=== PATIENT | female | born 1955 | race Caucasian/White ===

== ENCOUNTER → 2020-12-27 11:57 | Outpatient (CLI) | payer OTHER, SELFPAY ==
--- NOTE | ~2020-12-27 | MM_ITS ---
EXAMINATION: MM screening [facility] BI w nidia HISTORY: Screening mammogram TECHNIQUE: Craniocaudal and mediolateral oblique 3-D tomosynthesis images were obtained and synthetic 2-D images were generated. CAD analysis was submitted and interpreted. COMPARISON: 10/05/2019, 07/31/2018, 03/29/2017 bilateral digital screening mammogram examinations BREAST PARENCHYMAL COMPOSITION: The breasts are almost entirely fatty. FINDINGS: There is no evidence of suspicious mass, calcification, or architectural distortion to sugg est malignancy in either breast. There has been no suspicious interval change. IMPRESSION: 1. No mammographic evidence of malignancy. 2. Recommend routine screening mammography in one year. BI-RADS Category 1: Negative Reviewed, dictated and finalized at location A. SYSTEM OPERATOR
--- NOTE | ~2020-12-27 | DEXA_ITS ---
Bone Density Report Name: Gala Larios Age: 65 Sex: Female Ethnicity: White Date of : 1955 Indication: postmenopausal; screening for osteoporosis; height loss; hysterectomy; Referring Provider: Tobias, Becca Study: Bone densitometry was performed. Exam Date: December 27, 2020 Accession number: [id number] Bone Density: Region BMD T-score Z-score Classification AP Spine (L1-L4) 0.908 -1.3 0.4 Osteopenia Femoral Neck (Left) 0.856 0.1 1.5 Normal Total Hip (Left) 0.986 0.4 1.5 Normal Femoral Neck (Right) 0.841 -0.1 1.4 Normal Total Hip (Right) 0.965 0.2 1.3 Normal Total Hip Mean 0.976 0.3 1.4 Normal World Health Organization criteria for BMD impression classify patients as: Normal (T-score at or above -1.0), Osteopenia (T-score between -1.0 and -2.5), or Osteoporosis (T-score at or below -2.5). 10-year Fracture Risk(1): Major Osteoporotic Fracture 6.4% Hip Fracture 0.2% Reported Risk Factors: [place] (), Neck BMD=0.841, BMI=31.8 (1) FRAX(R) Version 3.08. Fracture probability calculated for an untreated patient. Fracture probability may be lower if the patient has received treatment. Previous Exams: Region Exam Age BMD T-score BMD Change BMD Change Date g/cm2 vs Baseline vs Previous AP Spine(L1-L4) 12/27/2020 65 0.908 -1.3 -0.112* -0.043* 07/31/2018 63 0.952 -0.9 -0.068* -0.044* 02/13/2015 59 0.996 -0.5 -0.024* -0.020 03/30/2012 56 1.016 -0.3 -0.004 0.006 01/29/2010 54 1.010 -0.3 -0.010 0.045* 11/04/2008 53 0.965 -0.7 -0.055* -0.055* 11/03/2006 51 1.020 -0.2 Total Hip(Left) 12/27/2020 65 0.986 0.4 -0.049* -0.068* 07/31/2018 63 1.054 0.9 0.019 0.018 02/13/2015 59 1.036 0.8 0.001 -0.047* 03/30/2012 56 1.083 1.2 0.047* 0.032* 01/29/2010 54 1.051 0.9 0.015 -0.026 11/04/2008 53 1.077 1.1 0.042* 0.042* 11/03/2006 51 1.035 0.8 Total Hip(Right) 12/27/2020 65 0.965 0.2 -0.034* -0.093* 07/31/2018 63 1.059 1.0 0.059* 0.029* 02/13/2015 59 1.030 0.7 0.030* -0.017 03/30/2012 56 1.047 0.9 0.047* 0.021 01/29/2010 54 1.026 0.7 0.026 0.030* 11/04/2008 53 0.996 0.4 -0.004 -0.004 11/03/2006 51 1.000 0.5 [place]
== END ==
PROVIDERS: PCP Emergency Medicine; Visit Provider Nurse Practitioner
DX: Z12.31 Encounter for screening mammogram for malignant neoplasm of breast (principal); Z78.0 Asymptomatic menopausal state; M85.88 Other specified disorders of bone density and structure, other site
CPT/HCPCS: 77063; 77067; 77080

== ENCOUNTER → 2022-01-04 10:22 | Outpatient (CLI) | payer OTHER, SELFPAY ==
--- NOTE | ~2022-01-04 | MM_ITS ---
EXAMINATION: MM screening [facility] BI w nidia HISTORY: Screening mammogram TECHNIQUE: Craniocaudal and mediolateral oblique 3-D tomosynthesis images were obtained and synthetic 2-D images were generated. CAD analysis was submitted and interpreted. COMPARISON: 12/27/2020, 10/05/2019, 07/31/2018 BREAST PARENCHYMAL COMPOSITION: There are scattered areas of fibroglandular density. FINDINGS: There is no evidence of suspicious mass, calcification, or architectural distortion to sugg est malignancy in either breast. There has been no suspicious interval change. IMPRESSION: 1. No mammographic evidence of malignancy. 2. Recommend routine screening mammography in one year. BI-RADS Category 1: Negative Reviewed, dictated and finalized at location A. RING MACHINE OPERATOR
== END ==
PROVIDERS: PCP Physician Assistant; Visit Provider Nurse Practitioner
DX: Z12.31 Encounter for screening mammogram for malignant neoplasm of breast (principal)
CPT/HCPCS: 77063; 77067

== ENCOUNTER 2022-04-11 13:30 | Emergency (ER) | payer MEDICARE, SELFPAY ==
[2022-04-11 14:11] VITALS: BP 156/76; PULSE 63; RESP 18; TEMP 36.6; O2SAT 97
--- NOTE | 2022-04-11 14:11 | ED.SKABFB ---
HPI - Skin/Abscess/Foreign Bdy General Chief complaint: Skin/Abscess/Foreign Body Stated complaint: dog bite Time Seen by Provider: 04/11/22 14:11 Source: patient Mode of arrival: ambulatory Limitations: no limitations History of Present Illness HPI narrative: 67-year-old female presented for concern of infection to a dog bite she sustained on the left leg 2 nights ago. She states she was seeing her PCP incidentally yesterday, who prescribed Augmentin and she has taken 3 doses. Endorses increased redness, swelling, and drainage to the site today. Also endorses pain, stating it is difficult to walk. Has not taken anything for pain. The dog was vaccinated, she states it is a deaf pitbull family dog. She is up-to-date on her tetanus. Denies numbness, tingling, weakness of the lower extremity. Related Data Home Medications Medication Instructions Recorded Confirmed amitriptyline 25 mg HS 04/11/22 04/11/22 atenolol-chlorthalidone 0.5 tablet DAILY 04/11/22 04/11/22 ergocalciferol (vitamin D2) 1,250 mcg WEEKLY 04/11/22 04/11/22 levothyroxine 75 mcg QAM 04/11/22 04/11/22 Allergies Allergy/AdvReac Type Severity Reaction Status Date / Time No Known Allergies Allergy Verified 04/11/22 14:30 Review of Systems Review of Systems: CONSTITUTIONAL: Denies body aches, fever, chills, or sweats. EYES: Denies visual changes, redness, or discharge. ENT: Denies rhinorrhea, congestion, sore throat, or otalgia. CARDIOVASCULAR: Denies chest pain, palpitations, or edema. RESPIRATORY: Denies cough or dyspnea. GASTROINTESTINAL: Denies abdominal pain, nausea, vomiting, or diarrhea. GENITOURINARY: Denies dysuria or hematuria. SKIN: dog bite left lower leg MUSCULOSKELETAL: Denies back pain, joint pain, or myalgia. NEUROLOGIC: Denies headache, numbness, tingling, or weakness. PSYCH: Denies depression or anxiety. PMFSH Comments At time of signature, I have reviewed and agree with nursing past medical, surgical, social and family history unless otherwise noted. Please see nursing chart for further information. There is no relevant family history pertinent to the presenting complaint Exam Narrative: GENERAL: Well-appearing HEAD: Normocephalic, atraumatic. EYES: conjunctivae clear, and EOMI. ENT: Mucous membranes moist. Oropharynx without edema, erythema or lesions. NECK: Supple. No lymphadenopathy CHEST: Clear to auscultation. No respiratory distress. HEART: Regular rate and rhythm. SKIN: Warm, dry. Left lower anterior leg with 2 puncture sites approx 0.5cm each with small amount purulent and serous drainage; lateral aspect with puncture wound approx .5cm no drainage, and posterior leg with dried laceration approx 1cm length surrounding bruising noted, no active drainage; moderate swelling and warmth, the erythema is not circumferential, slightly decreased ROM to ankle due to pain NEURO: Alert and oriented x3. PSYCH: Normal mood and affect Course Course Emergency Course: Patient is aware of diagnosis, understands and agrees to treatment plan. Anticipatory guidance given. Patient agrees to follow-up as directed and is aware of reasons to seek care at the emergency department. Portions of this record may have been created with voice recognition software Level of Care: Express Care Visit Vital Signs Vital signs: Vital Signs Temperature 97.8 F 04/11/22 14:11 Pulse Rate 63 04/11/22 14:11 Respiratory Rate 18 04/11/22 14:11 Blood Pressure 156/76 H 04/11/22 14:11 Pulse Oximetry 97 04/11/22 14:11 Temperature 97.8 F 04/11/22 14:11 Pulse Rate 63 04/11/22 14:11 Respiratory Rate 18 04/11/22 14:11 Blood Pressure 156/76 H 04/11/22 14:11 Pulse Oximetry 97 04/11/22 14:11 Reviewed MDM - Skin/Abscess/Foreign Bdy MDM Narrative Medical decision making narrative: wound culture sent. She is advised to continue previous abx and closely monitor the sx, continue to elevate and plantar/dorsiflex to increase circulatio
== END 2022-04-11 14:32 | disposition home or self-care (01) ==
PROVIDERS: Emergency Provider Nurse Practitioner Family; PCP Physician Assistant
DX: L03.116 Cellulitis of left lower limb (principal); S81.832A Puncture wound without foreign body, left lower leg, initial encounter; W54.0XXA Bitten by dog, initial encounter; E03.9 Hypothyroidism, unspecified
CPT/HCPCS: 87070; 87077; 87185; 87205; 99212; G0463

== ENCOUNTER 2022-08-01 01:00 | Outpatient (NON) | payer MEDICARE, SELFPAY | END 2022-08-01 01:01 | disposition home or self-care (01) | LOC: ANHLAB 08-02 07:50 | PROVIDERS: PCP Physician Assistant; Visit Provider Internal Medicine Gastroenterology | DX: R19.5 Other fecal abnormalities (principal); D12.8 Benign neoplasm of rectum; K62.1 Rectal polyp | CPT/HCPCS: 88305 ==

== ENCOUNTER 2022-08-01 11:58 | Day surgery (SDC) | payer MEDICARE, SELFPAY ==
[2022-06-13 07:54] VITALS: BMI 31.7
[2022-07-17 10:00] VITALS: BMI 31.2
[2022-08-01 12:22] VITALS: BP 148/77; PULSE 55; RESP 16; TEMP 36.9; O2SAT 99
[2022-08-01 12:31] VITALS: BMI 31.2
[2022-08-01] MEDS: LACTATED RINGERS 1,000 ML 150 ML IV CONT (12:32)
--- NOTE | 2022-08-01 12:46 | WPDANESEPPF ---
Anes - Initial Pre Proc Eval Procedure: Operation Date: 08/01/22 13:30 Proposed Procedures p Diagnostic Colonoscopy - Ismael Stewart MD Date/Time: 08/01/22 12:46 Surgeon: Ismael Stewart MD Pre Op Diagnosis: Positive Cologard Patient Data Age: 67 Gender: F Height: 1.55 m Weight: 75 kg Last Vital Signs Temp 36.9 C 08/01/22 12:22 Pulse 55 L 08/01/22 12:22 Resp 16 08/01/22 12:22 BP 148/77 H 08/01/22 12:22 Pulse Ox 99 08/01/22 12:22 O2 Del Method Room Air 08/01/22 12:22 Allergies Allergy/AdvReac Type Severity Reaction Status Date / Time No Known Allergies Allergy Verified 07/17/22 09:55 Home Medications Medication Instructions Recorded Confirmed Type amitriptyline 25 mg tablet 25 mg HS 04/11/22 07/17/22 History atenolol 50 mg-chlorthalidone 25 0.5 tablet DAILY 04/11/22 07/17/22 History mg tablet ergocalciferol (vitamin D2) 1,250 1,250 mcg WEEKLY 04/11/22 07/17/22 History mcg (50,000 unit) capsule levothyroxine 75 mcg tablet 75 mcg QAM 04/11/22 07/17/22 History peg 3350-electrolytes 236 240 ml PO Q10M #4,000 mL 06/13/22 Rx gram-22.74 gram-6.74 gram-5.86 gram solution (Golytely) Patient hx anesthesia problems: none Family hx anesthesia problems: none Results Review: All pre-operative results and documents have been reviewed as part of the pre-operative evaluation. [facility] Past Medical History Medical History (Updated 08/01/22 @ 12:46 by Yash Hurt MD) HTN (hypertension) Hypothyroidism Obesity Surgical History Surgical History (Updated 08/01/22 @ 12:47 by Yash Hurt MD) H/O colonoscopy H/O: hysterectomy History of section Social History Social History Smoking status: Never smoker Alcohol intake: current Drinks per week: 2 Substance use type: does not use Living arrangements: with family Spiritual care concerns: No Anes - Eval Final PreProcedure Day of Procedure 08/01/22 12:46 Patient weight: obese Heart: regular rate and rhythm Lungs: clear to auscultation Airway: Mallampati scale class II Neurological: alert and oriented Last oral intake: >/= 8 hours ASA classification: II Emergent: no Anesthetic plan: proceed Anesthesia type and monitoring: general GIVS and standard monitoring Results Review: All pre-operative results and documents have been reviewed as part of the pre-operative evaluation. Informed Consent: The patient's anesthetic plan and its attendant risks and benefits were discussed with the patient/family/POA. Questions were solicited and answers provided to the satisfaction of the patient/family/POA.
--- NOTE | 2022-08-01 13:12 | PM.IMHP ---
H&P: HPI History of Present Illness Date/Time: 08/01/22 13:12 Chief Complaint: Positive Cologuard test PMFSH Past Medical History Medical History (Updated 08/01/22 @ 12:46 by Yash Hurt MD) HTN (hypertension) Hypothyroidism Obesity Surgical History Surgical History (Updated 08/01/22 @ 12:47 by Yash Hurt MD) H/O colonoscopy H/O: hysterectomy History of section Social History Social History Smoking status: Never smoker Alcohol intake: current Drinks per week: 2 Substance use type: does not use Living arrangements: with family Spiritual care concerns: No Meds Home Medications and Allergies Home Medications Medication Instructions Recorded Confirmed Type amitriptyline 25 mg tablet 25 mg HS 04/11/22 08/01/22 History atenolol 50 mg-chlorthalidone 25 0.5 tablet DAILY 04/11/22 08/01/22 History mg tablet ergocalciferol (vitamin D2) 1,250 1,250 mcg WEEKLY 04/11/22 08/01/22 History mcg (50,000 unit) capsule levothyroxine 75 mcg tablet 75 mcg QAM 04/11/22 08/01/22 History peg 3350-electrolytes 236 240 ml PO Q10M #4,000 mL 06/13/22 Rx gram-22.74 gram-6.74 gram-5.86 gram solution (Golytely) Allergies Allergy/AdvReac Type Severity Reaction Status Date / Time No Known Allergies Allergy Verified 07/17/22 09:55 Vital Signs Vital Signs - 24 hr 08/01/22 12:22 Temperature 98.5 F Pulse Rate 55 L Respiratory Rate 16 Blood Pressure 148/77 H Pulse Oximetry 99 Oxygen Delivery Room Air
[2022-08-01 13:48] VITALS: BP 103/41; PULSE 55; RESP 16; O2SAT 100
[2022-08-01 13:58] VITALS: BP 85/43; PULSE 49; RESP 16; O2SAT 98
--- NOTE | 2022-08-01 14:02 | WPDANESPN ---
Anes - Prog Note Post-Op Date/Time: 08/01/22 14:02 Cardiovascular status: normal Respiratory status: normal Airway patency: baseline Mental status: baseline Post-Op hydration status: normal Vital Signs: Last Vital Signs Temp 36.9 C 08/01/22 12:22 Pulse 55 L 08/01/22 13:48 Resp 16 08/01/22 13:48 BP 103/41 L 08/01/22 13:48 Pulse Ox 100 08/01/22 13:48 O2 Del Method Room Air 08/01/22 13:48 Pain Score (VAS): 0/10 Patient Feedback: Patient satisfied with anesthetic care.
== END 2022-08-01 14:24 | disposition home or self-care (01) ==
PROVIDERS: PCP Physician Assistant; Visit Provider Internal Medicine Gastroenterology
PROC: 0DJD8ZZ Inspection of Lower Intestinal Tract, Via Natural or Artificial Opening Endoscopic (ICD-10-PCS; CPT 45378; principal; 2022-08-01 13:30)
DX: R19.5 Other fecal abnormalities (principal)
CPT/HCPCS: 45385

== ENCOUNTER → 2023-02-12 13:18 | Outpatient (CLI) | payer MEDICARE, SELFPAY ==
--- NOTE | ~2023-02-12 | MM_ITS ---
EXAMINATION: MM screening [facility] BI w nidia HISTORY: Screening TECHNIQUE: Craniocaudal and mediolateral oblique 3-D tomosynthesis images were obtained and synthetic 2-D images were generated. CAD analysis was submitted and interpreted. COMPARISON: Comparison to multiple prior studies sequentially, with oldest reviewed study dated 03/16. BREAST PARENCHYMAL COMPOSITION: There are scattered areas of fibroglandular density. FINDINGS: There is no evidence of suspicious mass, calcification, or architectural distortion to sugg est malignancy in either breast. There has been no suspicious interval change. IMPRESSION: 1. No mammographic evidence of malignancy. 2. Recommend routine screening mammography in one year. BI-RADS Category 1: Negative Reviewed, dictated and finalized at location A.
--- NOTE | ~2023-02-12 | DEXA_ITS ---
Bone Density Report Name: PERCY CABRAL Age: 67 Sex: Female Ethnicity: White Date of : 1955 Indication: osteopenia; height loss; hysterectomy; postmenopausal Referring Provider: Tobias*Junie, Becca Study: Bone densitometry was performed. Exam Date: February 12, 2023 Accession number: [id number] Bone Density: Region BMD T-score Z-score Classification AP Spine (L1-L4) 0.871 -1.6 0.2 Osteopenia Femoral Neck (Left) 0.816 -0.3 1.3 Normal Total Hip (Left) 0.979 0.3 1.6 Normal Femoral Neck (Right) 0.817 -0.3 1.3 Normal Total Hip (Right) 0.914 -0.2 1.0 Normal Total Hip Mean 0.946 0.1 1.3 Normal World Health Organization criteria for BMD impression classify patients as: Normal (T-score at or above -1.0), Osteopenia (T-score between -1.0 and -2.5), or Osteoporosis (T-score at or below -2.5). 10-year Fracture Risk(1): Major Osteoporotic Fracture 7.0% Hip Fracture 0.3% Reported Risk Factors: [place] (), Neck BMD=0.816, BMI=30.9 (1) FRAX(R) Version 3.08. Fracture probability calculated for an untreated patient. Fracture probability may be lower if the patient has received treatment. Previous Exams: Region Exam Age BMD T-score BMD Change BMD Change Date g/cm2 vs Baseline vs Previous AP Spine(L1-L4) 02/12/2023 67 0.871 -1.6 -0.148* -0.037* 12/27/2020 65 0.908 -1.3 -0.112* -0.043* 07/31/2018 63 0.952 -0.9 -0.068* -0.044* 02/13/2015 59 0.996 -0.5 -0.024* -0.020 03/30/2012 56 1.016 -0.3 -0.004 0.006 01/29/2010 54 1.010 -0.3 -0.010 0.045* 11/04/2008 53 0.965 -0.7 -0.055* -0.055* 11/03/2006 51 1.020 -0.2 Total Hip(Left) 02/12/2023 67 0.979 0.3 -0.057* -0.007 12/27/2020 65 0.986 0.4 -0.049* -0.068* 07/31/2018 63 1.054 0.9 0.019 0.018 02/13/2015 59 1.036 0.8 0.001 -0.047* 03/30/2012 56 1.083 1.2 0.047* 0.032* 01/29/2010 54 1.051 0.9 0.015 -0.026 11/04/2008 53 1.077 1.1 0.042* 0.042* 11/03/2006 51 1.035 0.8 Total Hip(Right) 02/12/2023 67 0.914 -0.2 -0.085* -0.051* 12/27/2020 65 0.965 0.2 -0.034* -0.093* 07/31/2018 63 1.059 1.0 0.059* 0.029* 02/13/2015 59 1.030 0.7 0.030* -0.017 03/30/2012 56 1.047 0.9 0.047* 0.021 01/29/2010 54 1.026 0.7 0.026 0.030* 11/04/2008 53 0.996
== END ==
PROVIDERS: PCP Physician Assistant; Visit Provider Nurse Practitioner
DX: Z12.31 Encounter for screening mammogram for malignant neoplasm of breast (principal); Z78.0 Asymptomatic menopausal state; M85.88 Other specified disorders of bone density and structure, other site
CPT/HCPCS: 77063; 77067; 77080

== ENCOUNTER 2024-03-12 10:48 | Outpatient (CLI) | payer MEDICARE, SELFPAY ==
--- NOTE | ~2024-03-12 | MM_ITS ---
EXAMINATION: MM screening [facility] BI w nidia HISTORY: Screening TECHNIQUE: Craniocaudal and mediolateral oblique 3-D tomosynthesis images were obtained and synthetic 2-D images were generated. CAD analysis was submitted and interpreted. COMPARISON: Comparison to multiple prior studies sequentially, with oldest reviewed study dated 09/24. BREAST PARENCHYMAL COMPOSITION: There are scattered areas of fibroglandular density. FINDINGS: There is no evidence of suspicious mass, calcification, or architectural distortion to sugg est malignancy in either breast. There has been no suspicious interval change. IMPRESSION: 1. No mammographic evidence of malignancy. 2. Recommend routine screening mammography in one year. BI-RADS Category 1: Negative Reviewed, dictated and finalized at location B.
== END 2024-03-12 10:49 ==
LOC: MICIMG 10:49
PROVIDERS: PCP Obstetrics & Gynecology Gynecology; Visit Provider Obstetrics & Gynecology Gynecology
DX: Z12.31 Encounter for screening mammogram for malignant neoplasm of breast (principal)
CPT/HCPCS: 77063; 77067

== ENCOUNTER 2024-12-25 14:00 | Emergency (ER) | payer MEDICARE, SELFPAY ==
--- OUTSIDE RECORDS SUMMARY | 2024-12-25 14:02 | XMS_ITS | Encounter Summary ---
Author Organization [facility] Address [address] [place] [address]. [place], [place] [id number] [place] [address] Care Team Providers Care Inspector Handbag Frames Name Role Phone Virginia Gatica Primary Care Provider [phone] Rafaela Miles APRN Primary Care Provider + [phone] Encounter Details Date Type Department Care Team (Late Contact Info) Description 03/28/2023 [place] Message Enc [facility] Family & Internal Medicine [facility] [id number] [place] [phone] [facility] Provider Appointment Social History Tobacco Use Types Packs/Day Years Used Date Smoking Tobacco: Former Cigarettes 1 15 2 - 1996 Smokeless Tobacco: Never Alcohol Use Standard Drinks/Week Comments Yes 0 (1 standard drink = 0.6 oz pur e alcohol) weekend drinker PHQ-2 Answer Date Recorded PHQ-2 Score - If the patient scores above 3, please move on to questions 3-9 2 04/10/2022 Comments No Sex and Gender Information Value Date Recorded Sex Assigned at Not on file Legal Sex Female 5:50 PM CDT Gender Identity Not on file Sexual Orientation Not on file documented as of this encounter Plan of Treatment Upcoming Encounters Date Type Department Care Team (Late Contact Info) Description 01/14/2025 7:00 AM COST CONSULTANT Office Visit [facility] Family & Internal [address] [phone] Rafaela Miles APRN [address] [place] [address] [place] [address] documented as of this encounter Visit Diagnoses Not on filedocumented in this encounter Additional Health Concerns Assessment Noted Time PHQ-9 Depression Total Score: 0 10/08/20 21 7:34 AM COST CONSULTANT documented as of this encounter Care Teams Inspector Handbag Frames Relationship Specialty [place] [address] [place] [address] PCP - General PHYSICIAN COVERAGE SPECIALIST 04/05/20 01/06/24 Rafaela Miles APRN [address] [address] [address] PCP - General NURSE PRACTITIONER 01/07/24 documented as of this encounter
--- OUTSIDE RECORDS SUMMARY | 2024-12-25 14:02 | XMS_ITS | Encounter Summary ---
Author Organization [facility] Address [address] [place] [address]. [place], [place] [id number] [place] [address] Care Team Providers Care Aircraft Cylinder Mechanic Name Role Phone Virginia Gatica Primary Care Provider [phone] Rafaela Miles APRN Primary Care Provider + [phone] Encounter Details Date Type Department Care Team (Late Contact Info) Description 08/22/2022 [facility] PROFESSIONAL [employer] INTERNATIONAL Message Enc [facility] Family & Internal Medicine [address] [phone] [facility] Provider Appointment & medication refill Social History Tobacco Use Types Packs/Day Years [...] (Late Contact Info) Description 01/14/2025 7:00 AM TEAM PRIMARY CARE PHYSICIAN Office Visit [facility] Family & Internal Medicine [address] [phone] Rafaela Miles APRN [address] [place] [address] [place] [address] documented as of this encounter Visit Diagnoses Not on filedocumented in this encounter Additional Health Concerns Assessment Noted Time PHQ-9 Depression Total Score: 0 10/08/20 21 7:34 AM TEAM PRIMARY CARE PHYSICIAN documented as of this encounter Care Teams Aircraft Cylinder Mechanic Relationship Specialty Start [place] [address] [place] [address] PCP - General PHYSICIAN VACUUM PAN OPERATOR 04/05/20 01/06/24 Rafaela Miles APRN [address] [address] [address] PCP - General NURSE PRACTITIONER 01/07/24 documented as of this encounter
--- OUTSIDE RECORDS SUMMARY | 2024-12-25 14:02 | XMS_ITS | Clinical Summary ---
Author Organization [facility] Address [address] [place] [address]. [place] [address] [place] [address] Care Team Providers Care Diamond Powder Technician Name Role Phone Rafaela Miles APRN Primary Care Provider [phone] Allergies No known active allergies Medications losartan (COZAAR) 25 MG tabletIndications: Hypertension, unspecified type Take 1 tablet (25 mg total) by mouth daily. 90 tablet 1 07/09/20 24 Active levothyroxine (EUTHYROX) 75 MCG tabletIndications: Acquired hypothyroidism Take 1 tablet (75 mcg total) by mouth every morning. 90 tablet 2 07/09/20 24 Active amitriptyline (ELAVIL) 25 MG tabletIndications: Insomnia, unspecified type Take 1 tablet (25 mg total) by mouth nightly at bedtime. at bedtime. 90 tablet 1 07/09/20 24 Active meloxicam (MOBIC) 15 MG tabletIndications: Arthritis Take 1 tablet (15 mg total) by mouth daily. 90 tablet 07/09/20 24 Active vitamin D2, ergocalciferol, (DRISDOL) 1.25 mg capsuleIndications :Vitamin D deficiency Take 1 capsule by mouth once a week 5 capsule 12/06/19 25 Active vitamin D2, ergocalciferol, (DRISDOL) 1.25 mg capsuleIndications :Vitamin D deficiency Take 1 capsule by mouth once a week 5 capsule 10/25/20 24 025 Discontinued Active Problems Problem Noted Date Diagnosed Date Hypertension, unspecified type 04/10/2022 Primary osteoarthritis of right knee 06/20/2021 Assessment & Plan (06/20/2021 11:39 AM CDT): We discussed the risks, benefits and alternatives. The only thing proven to slow the progression of osteoarthritis is weight loss. Every pound lost relieves 4 to 6 pounds of stress across the knee. We discussed unloading braces. Formal physical therapy to help with flexibility, mobility and strength. We discussed TENS units. Nonsteroidal anti-inflammatories as well as Tylenol and pain medication and their side effects. We discussed steroid versus Visco supplement injection. We discussed eventual total knee arthroplasty. Greater trochanteric bursitis, right 06/20/2021 Assessment & Plan (06/20/2021 11:40 AM CDT): We discussed the risks, benefits and alternatives. Patient will continue with her diclofenac. Physician directed exercises were given for stretching. Follow-up in 4 to 6 weeks. If no significant improvement consider steroid injection BMI 31.0-31.9,adult 06/20/2021 Assessment & Plan (06/20/2021 11:40 AM CDT): We discussed the adverse effects of weight on osteoarthritis of the knee. For every 1 pound loss, 4 to 6 pounds of stress is relieved from the knee. We discussed low carbohydrate diet to help with weight loss. 80% of weight loss is through diet. Complex tear of lateral meni scus of right knee as current injury 05/25/2021 Overview (05/25/2021): MRI 12/2020 Assessment & Plan (06/20/2021 11:40 AM CDT): We discussed the risks, benefits and alternatives. There are only 3 things to do for meniscal tears. Nothing, see if it gets better on its own. Conservative treatment of nonsteroidal anti-inflammatories, physical therapy, steroid injection, activity modification, TENS unit and bracing. Finally, diagnostic and operative arthroscopy with repair or partial meniscectomy. Disorder of shoulder 04/18/2021 Herpes simplex 09/06/2016 Hypothyroidism 02/06/2015 Pre-diabetes 02/06/2015 Hormone deficiency 01/30/2015 Vitamin D deficiency 01/30/2015 Encounters Date Type Department Care Team Description 10/04/2024 Scan HEALTH INFO SRVCS Scanned, Doc [facility] from Last 3 Months Immunizations Name Administration Dates Next Due Dt (1-<7 Y.O.) 01/30/2005 Fluzone 6 Months+ Quad (0.5 mL Prefilled Syringe) 10/08/2021 Influenza (Generic) 09/01/2014 Influenza Adult (Generic) 01/08/2024(Def erred: Patient/family declined),03/12/2023(Deferred: Patient/family declined),09/22/2017 MODERNA COVID-19 (AGER TENDER WAYNE ANASTACIO), MRNA, LNP-S, PF, 50 MCG/ 0.25 ML DOSE 11/14/2021 PFIZER COVID-19 (ORIGINAL FORMULATION, PURPLE CAP) mRNA, LNP-S, PF, 30 MCG/0.3 ML DOSE 02/22/2021,02/07/2021 Pneumococcal (Prevnar 20) 07/08/2023 Shingrix 02/18/2022,12/17/2021 Tdap (Adacel) 06/18/2021 06/18/2031 Tdap (Historical Only-select from magnify glass) 04/13/2020 Zoster (Zostavax) 01963 Unt/0.65Ml 02/22/2015 Family History Medical History Relation Comments Parkinson's Disease Brother Pancreatic cancer Father Aneurysm Mother Osteoporosis Sister Relation Status Comments Brother Alive Father Mother Sister Alive Social History Tobacco Use Types Packs/Day Years Used Date Smoking Tobacco: Former Cigarettes 1 15 1 - 1996 Passive Smoke Exposure: Past Smokeless Tobacco: Never Tobacco Cessation:Counseling Given: Yes Alcohol Use Standard Drinks/Week Comments Yes 0 (1 standard drink = 0.6 oz pur e alcohol) weekend drinker PHQ-2 Answer Date Recorded Patient Health Questionnaire-2 Score 0 01/08/2024 Comments No Sex and Gender Information Value Date Recorded Sex Assigned at Not on file Legal Sex Female 5:50 PM CDT Gender Identity Not on file Sexual Orientation Not on file Last Filed Vital Signs Vital Sign Reading Time Taken Comments Blood Pressure 146/70 07/09/2024 7:13 AM CDT Pulse 56 07/09/2024 7:05 AM CDT Temperature 36.1 ??C (97 ??F) 07/09/2024 7:05 AM CDT Respiratory Rate 18 07/09/2024 7:05 AM CDT Oxygen Saturation 100% 07/09/2024 7:05 AM CDT Inhaled Oxygen Concentration - - Weight 76.1 kg (167 lb 12.8 oz) 07/09/2024 7:05 AM CDT Height 152.4 cm (5') 07/09/2024 7:05 AM CDT Body Mass Index 32.77 07/09/2024 7:05 AM CDT Plan of Treatment Upcoming Encounters Date Type Department Care Team (Late st Contact Info) Description 01/14/2025 7:00 AM PAIN MANAGEMENT PHYSICIAN Office Visit [facility] Family & Internal Medicine - [place] [address] [place] [address] Rafaela Miles APRN [address] [facility] [address] [place] [address] Health Maintenance Due Date Last Done Comments Annual Medicare Wellness Visit 2022 COVID-19 Vaccine ( season) 2024 11/14/2021, 02/22/2021, 02/07/2021 Influenza Adult (#1) 2024 10/08/2021, 09/22/2017, 09/01/2014 PHQ-2 (Physician [place]) 11/24/2024 01/08/2024 Mammogram Screening 03/12/2025 03/12/2024, 02/12/2023, 01/04/2022, Additional history exists Colorectal Cancer Screening FIT-DNA (3 Years) 04/25/2025 04/25/2022, 04/25/2022 DTaP, Tdap and Td Vaccines (3 - Td or Tdap) 06/18/2031 06/18/2021, 04/13/2020, 01/30/2005 RSV Immunization or 60+ Years (1 - 1-dose 75+ series) 2032 Colorectal Cancer Screening Colonoscopy (10 Years) Discontinued 05/20/2012 Zoster Vaccines Completed 02/18/2022, 11/25, 02/22/2015 Hepatitis C Completed 04/10/2022 Dexa Scan (General) Completed 02/12/2023, 1 Pneumococcal Vaccine: 65+ Years Completed 07/08/2023 Meningococcal B Vaccine Aged Out No l onger eligible based on patient's age to complete this topic Meningococcal Vaccine Aged Out No ruth farrukh eligible based on patient's age to complete this topic RSV Immunizations Under 20 Months Aged Out No longer eligible based on patient's age to complete this topic Procedures Procedure Name Priority Date/Time Associated Diagnosis Comments MAMMOGRAM GENERIC (SCAN ORDER) 03/12/2024 BONE DENSITY GENERIC (SCAN ORDER) 02/12/2023 COLOGUARD (EXACT SCIENCE) Routine 04/25/2022 11:00 AM CDT Colon cancer screening HEPATITIS C ANTIBODY W/RFX TO HCV RNA Routine 04/10/2022 7:59 AM CDT Encounter for hepatitis C screening test for low risk patient COLONOSCOPY GENERIC (SCAN ORDER) 05/20/2012 from Last 3 Months or Most Recently Relevant to Health Maintenance Results * MAMMOGRAM GENERIC (SCAN ORDER) (03/12/2024) Anatomical Region Laterality Modality Other 03/12/2024 [facility] Scanned SCANNING Final Resu lt * BONE DENSITY GENERIC (02/12/2023) Anatomical Region Laterality Modality Other 02/12/2023 [facility] Scanned SCANNING Final Resu lt * (ABNORMAL) COLOGUARD (EXACT SCIENCE) (04/25/2022 11:00 AM CDT) COLOGUARD RESULT Positive( A) Negative [facility] (CLIA #:[id number]) Comment: POSITIVE TEST RESULT. A positive Cologuard result should be followed with a colonoscopy or visual examination of the colon. The normal value (reference range) for this assay is negative. TEST DESCRIPTION: Composite algorithmic analysis of stool DNA-biomarkers with hemoglobin immunoassay. ?? Quantitative values of individual biomarkers are not reportable and are not associated with individual biomarker result reference ranges. Cologuard is intended for colorectal cancer screening of adults of either sex, 45 years or older, who are at average-risk for colorectal cancer (CRC). Cologuard has been approved for use by the U.S. FDA. The performance of Cologuard was established in a cross sectional study of average-risk adults aged 50-84. Cologuard performance in patients ages 45 to 49 years was estimated by sub-group analysis of near-age groups. Colonoscopies performed for a positive result may find as the most clinically significant lesion: colorectal cancer [4.0%], advanced adenoma (including sessile serrated polyps greater than or equal to 1cm diameter) [20%] or non- advanced adenoma [31%]; or no colorectal neoplasia [45%]. These estimates are derived from a prospective cross-sectional screening study of 10,000 individuals at average risk for colorectal cancer who were screened with both Cologuard and colonoscopy. (Cheryl Pena et al, N Engl J Med 2014;370(14):2614-7375.) Cologuard may produce a false negative or false positive result (no colorectal cancer or precancerous polyp present at colonoscopy follow up). A negative Cologuard test result does not guarantee the absence of CRC or advanced adenoma (pre-cancer). The current Cologuard screening interval is every 3 years. ([place] Cancer Society and U.S. Multi-Society Task Force). Cologuard performance data in a 10,000 patient pivotal study using colonoscopy as the reference method can be accessed at the following location: www.CHAINels/results. Additional description of the Cologuard test process, warnings and precautions can be found at www.FraudMetrixoguard.com. STOOL STOOL SPECIMEN / Unknown 04/25/2022 11:00 AM CDT 04/26/2022 3:49 PM CDT us [place] [facility] BODY FLUIDS [facility] STOOLS ORDER ABDIAS Final Result [facility] ([facility]) [address] [place] [address], [facility] (CLIA #:[id number]) [place] [address] * HEPATITIS C ANTIBODY ([facility] ONLY) (04/10/2022 7:59 AM CDT) HEPATITIS C AB NON-REACTI VE NON-REACT WILLOW [facility] SIGNAL TO CUTOFF 0.02 <[address] [facility] Comment: HCV antibody was non-reactive. There is no laboratory evidence of HCV infection. In most cases, no further action is required. However, if recent HCV exposure is suspected, a test for HCV RNA (test code 18697) is suggested. For additional information please refer to http://education.Intigua/faq/PSC14v7 (This link is being provided for informational/ educational purposes only.) 04/10/2022 7:59 AM CDT 04/11/2022 8:06 AM CDT [place] [facility] Final Result [facility] [address] [place] [address] * COLONOSCOPY GENERIC (05/20/2012) 05/20/2012 [facility] Scanned SCANNING Final Resu lt from Last 3 Months or Most Recently Relevant to Health Maintenance Insurance [facility] Care Teams Diamond Powder Technician Relationship Specialty Start Date End Date Rafaela Miles APRN [address] [place] [address] PCP - General NURSE PRACTITIONER 01/07/24
--- OUTSIDE RECORDS SUMMARY | 2024-12-25 14:02 | XMS_ITS | Encounter Summary ---
Author Organization [facility] Address [address] [place] [address]. [place], [place] [address] [place] [address] Care Team Providers Care Magnetic Doctor Name Role Phone [place] Gatica Primary Care Provider [phone] Rafaela Miles APRN Primary Care Provider + [phone] Encounter Details Date Type Department Care Team (Late st Contact Info) Description 06/30/2023 Coupons Near Me Message Enc [facility] Medical Group Family & Internal Medicine [facility] [address] [place] [address] [place] [address] [place] [address] Bloodwork Social History Tobacco Use Types Packs/Day Years Used Date Smoking Tobacco: Former Cigarettes 1 15 1 2 - 1996 Smokeless Tobacco: Never Alcohol [...] on file documented as of this encounter Progress Notes * Jessica Hiar RN - 06/30/2023 12:30 PM CDT Noted. documented in this encounter Plan of Treatment Upcoming Encounters Date Type Department Care Team (Late st Contact Info) Description 01/14/2025 7:00 AM TOP STEEP TENDER Office Visit [facility] Medical Group Family & Internal Medicine [facility] [address] [place] [address] Rafaela Miles APRN [address] [address] documented as of this encounter Visit Diagnoses Not on filedocumented in this encounter Additional Health Concerns Assessment Noted Time PHQ-9 Depression Total Score: 0 10/08/20 21 7:34 AM TOP STEEP TENDER documented as of this encounter Care Teams Magnetic Doctor Relationship Specialty [place] [address] [place] [address] PCP - General PHYSICIAN SMALL BUSINESS REPRESENTATIVE 04/05/20 01/06/24 Rafaela Miles APRN [address] [address] PCP - General NURSE PRACTITIONER 01/07/24 documented as of this encounter
--- OUTSIDE RECORDS SUMMARY | 2024-12-25 14:02 | XMS_ITS | Encounter Summary ---
Author Organization [facility] Address [address] [place] [address]. [place], [place] [address] [place] [address] Care Team Providers Care Planogrammer Name Role Phone [place] Gatica Primary Care Provider [phone] Rafaela Miles APRN Primary Care Provider + [phone] Encounter Details Date Type Department Care Team (Late Contact Info) Description 07/03/2022 Yoyi Media Message Enc [facility] Family & Internal Medicine [address] [address] [place], [facility] Provider Cologuard Social History Tobacco Use Types Packs/Day Years [...] (Late Contact Info) Description 01/14/2025 7:00 AM CELLOPHANE BAG MACHINE OPERATOR Office Visit [facility] Family & Internal Medicine [address] [address] Rafaela Miles APRN [address] [place] [address] [place] [address] documented as of this encounter Visit Diagnoses Not on filedocumented in this encounter Additional Health Concerns Assessment Noted Time PHQ-9 Depression Total Score: 0 10/08/20 21 7:34 AM CELLOPHANE BAG MACHINE OPERATOR documented as of this encounter Care Teams Planogrammer Relationship Specialty [place] [address] [place] [address] PCP - General PHYSICIAN HATCHERY HELPER 04/05/20 01/06/24 Rafaela Miles APRN [address] [address] PCP - General NURSE PRACTITIONER 01/07/24 documented as of this encounter
--- OUTSIDE RECORDS SUMMARY | 2024-12-25 14:02 | XMS_ITS | Encounter Summary ---
Author Organization [facility] Address [address] [place] [address]. [place], [place] [address] [place] [address] Care Team Providers Care Boiler Coverer Name Role Phone [place] Gatica Primary Care Provider [phone] Rafaela Miles APRN Primary Care Provider + [phone] Encounter Details Date Type Department Care Team (Late Contact Info) Description 10/29/2022 Kwarter Message Enc [facility] Family & Internal Medicine [facility] [address] [place] [address] [facility] Provider Appointment Social History Tobacco Use Types [...] (Late Contact Info) Description 01/14/2025 7:00 AM POLISHER HAND Office Visit [facility] Family & Internal [address] [address] Rafaela Miles APRN [address] [place] [address] [place] [address] documented as of this encounter Visit Diagnoses Not on filedocumented in this encounter Additional Health Concerns Assessment Noted Time PHQ-9 Depression Total Score: 0 10/08/20 21 7:34 AM POLISHER HAND documented as of this encounter Care Teams Boiler Coverer Relationship Specialty [place] [address] [place] [address] PCP - General PHYSICIAN MESH CUTTER 04/05/20 01/06/24 Rafaela Miles APRN [address] [address] [address] PCP - General NURSE PRACTITIONER 01/07/24 documented as of this encounter
[2024-12-25 14:10] VITALS: BP 193/85; PULSE 95; RESP 18; TEMP 36.4; O2SAT 99
--- NOTE | 2024-12-25 14:11 | ED_ITS ---
HPI - General Adult General Chief complaint: Wound/Laceration Stated complaint: RT Leg Cut Time Seen by Provider: 12/25/24 14:11 Source: patient Mode of arrival: ambulatory Limitations: no limitations History of Present Illness HPI narrative: 69-year-old female patient presents to the [facility] with complaints of a laceration to the right leg. Patient states that her is in a wheelchair and was walking by and is cut her leg on the wheelchair. Patient states her last tetanus shot was about 3 years ago when she was seen for a dog bite. Patient denies any history of diabetes. Related Data Home Medications ?Medication ?Instructions ?Recorded ?Confirmed ?Last Taken ?Type amitriptyline 25 mg tablet 25 mg HS 04/11/22 08/01/22 07/31/22 History atenolol 50 mg-chlorthalidone 25 0.5 tablet DAILY 04/11/22 08/01/22 08/01/22 History mg tablet ergocalciferol (vitamin D2) 1,250 1,250 mcg WEEKLY 04/11/22 08/01/22 07/29/22 History mcg (50,000 unit) capsule levothyroxine 75 mcg tablet 75 mcg QAM 04/11/22 08/01/22 08/01/22 History meloxicam 15 mg tablet mg 12/25/24 Unknown History Allergies Allergy/AdvReac Type Severity Reaction Status Date / Time No Known Allergies Allergy Verified 12/25/24 14:12 Review of Systems Review of Systems: CONSTITUTIONAL: Denies fever, chills, or sweats. EYES: Denies visual changes, redness, or discharge. ENT: Denies rhinorrhea, congestion, sore throat, or otalgia. CARDIOVASCULAR: Denies chest pain, palpitations, or edema. RESPIRATORY: Denies cough or dyspnea. GASTROINTESTINAL: Denies abdominal pain, nausea, vomiting, or diarrhea. GENITOURINARY: Denies dysuria or hematuria. SKIN: Denies rash or itching. Positive laceration to right lower leg MUSCULOSKELETAL: Denies back pain, joint pain, or myalgia. NEUROLOGIC: Denies headache, numbness, or weakness. PSYCHIATRIC: Denies anxiety or depression. [facility] Past Medical History Medical History Obesity HTN (hypertension) Hypothyroidism Surgical History Surgical History History of section H/O: hysterectomy H/O colonoscopy Social History Social History Smoking status: Never smoker Alcohol intake: current Drinks per week: 2 Substance use type: does not use Living arrangements: with family Spiritual care concerns: No Comments At the time of my signature I agree with nursing past medical history, surgical, social, and family history. There is no relevant family history pertinent to the presenting complaint. Exam Narrative: GENERAL: Well-appearing, well-nourished, and in no acute distress. HEAD: Normocephalic, atraumatic. EYES: PERRLA and EOMI. ENT: Nares clear, no rhinorrhea or epistaxis. Mucous membranes moist. NECK: Supple. No lymphadenopathy CHEST: Clear to auscultation. No respiratory distress. HEART: Regular rate and rhythm. No murmur heard. Normal peripheral pulses. ABDOMEN: Soft, nontender, nondistended, normal active bowel sounds. EXTREMITIES: Normal range of motion. No edema. SKIN: Warm, dry, no rash. NEURO: No focal deficits. Alert and oriented x3. Course Course Level of Care: Express Care Visit Vital Signs Vital signs: Vital Signs Temperature 36.4 C 12/25/24 14:10 Pulse Rate 95 12/25/24 14:10 Respiratory Rate 18 12/25/24 14:10 Blood Pressure 193/85 H 12/25/24 14:10 Pulse Oximetry 99 12/25/24 14:10 Oxygen Delivery Room Air 12/25/24 14:10 Temperature 36.4 C 12/25/24 14:10 Pulse Rate 95 12/25/24 14:10 Respiratory Rate 18 12/25/24 14:10 Blood Pressure 193/85 H 12/25/24 14:10 Pulse Oximetry 99 12/25/24 14:10 Oxygen Delivery Room Air 12/25/24 14:10 Vital signs reviewed. Procedures Laceration Laceration 1: Date: 12/25/24 Time: 15:18 Site: lower extremity Side (If applicable): right Size (cm): 7 Description: linear and flap Depth: simple, single layer Local Anesthetic: lidocaine 1% and with epi Amount of anesthesia used (mL): 10 Pre-repair: wound explored, irrigated and irrigated extensively ====== Skin Level ====== Skin layer closed with: vicryl Size (cm): 3-0 Number of sutures: 10 Technique: simple, interrupted ====== Subcutaneous Layer ====== ====== Muscle Layer ====== ====== Tendon Layer ====== Dressing: The Procedure was explained and verbal consent was obtained. The wound was anesthetized with 10 ml of 1% lidocaine with epi with good anesthesia with local infiltration. Sterile drape and prep were done. Copious irrigation was done with saline and Shur-Clens and the wound was explored. There was no foreign body or deep structure injury noted. Patient had good range of motion under anesthesia. Wound edges were approximated with good alignment using sutures. There were 10 sutures placed with 3-0. antibiotic ointment applied to wound with and nonadherent dressing over it with 4 x 4's and wrapped with gauze. The patient tolerated the procedure well without adverse effects. Medical Decision Making MDM Narrative Medical decision making narrative: discussed with patient that I will am going to go ahead and put her on a course of antibiotics since the wound was pretty large and the fact that she cut it on a metal wheelchair. Discussed with her on how to clean the wound and signs and symptoms of infection. Patient verbalized understanding denies any other questions or concerns at this time. Differential Diagnosis Differential Diagnosis: Differential diagnosis: Simple, intermediate, or complex laceration. Vital Signs Vital Signs: Vital Signs Temperature 36.4 C 12/25/24 14:10 Pulse Rate 95 12/25/24 14:10 Respiratory Rate 18 12/25/24 14:10 Blood Pressure 193/85 H 12/25/24 14:10 Pulse Oximetry 99 12/25/24 14:10 Oxygen Delivery Room Air 12/25/24 14:10 Temperature 36.4 C 12/25/24 14:10 Pulse Rate 95 12/25/24 14:10 Respiratory Rate 18 12/25/24 14:10 Blood Pressure 193/85 H 12/25/24 14:10 Pulse Oximetry 99 12/25/24 14:10 Oxygen Delivery Room Air 12/25/24 14:10 Critical Care Time Critical Care Time Critical Care Time: No Discharge Plan Discharge Clinical Impression: Laceration of right lower extremity Patient Disposition: Home, Self-Care Condition: Stable Instructions: Antibiotic Form, Laceration (ED) Additional Instructions: -Keep the dressing clean and dry for 1-2days; then you may gently clean with soap and water whenever you take a shower; however no continuous water contact like dishes or swimming. Getting them too wet can slow down healing and raise your chance of getting an infection. After you wash your stitches or adriane, pat them dry and put an antibiotic ointment on them. -watch for signs of infection including: redness or swelling around the cut, or pus drains from the cut. It is normal for clear yellow fluid to drain from the cut in the first few days. -follow up with PCP for suture/staple in removal 7-10 days Patient Language: Panamanian Prescriptions: New cephalexin 500 mg capsule 500 mg PO Q12H 7 Days Qty: 14 0RF No Action atenolol-chlorthalidone 50-25 mg tablet 0.5 tablet DAILY levothyroxine 75 mcg tablet 75 mcg QAM amitriptyline 25 mg tablet 25 mg HS ergocalciferol (vitamin D2) 1,250 mcg (50,000 unit) capsule 1,250 mcg WEEKLY meloxicam 15 mg tablet Follow-up/Referrals: Caitie,Adolfo Magana MD [Primary Care Provider] - Time of Disposition: 15:14
[2024-12-25] MEDS: LIDO 1%/EPINEPHRINE 1:100,000 20 ML VIAL INFILTRATE (14:27)
== END 2024-12-25 15:26 | disposition home or self-care (01) ==
PROVIDERS: Emergency Provider Nurse Practitioner Family; PCP Family Medicine
DX: S81.811A Laceration without foreign body, right lower leg, initial encounter (principal); W22.8XXA Striking against or struck by other objects, initial encounter; I10 Essential (primary) hypertension; E03.9 Hypothyroidism, unspecified; E66.9 Obesity, unspecified; Z68.29 Body mass index [BMI] 29.0-29.9, adult
CPT/HCPCS: 12002; 99213; G0463; J2004

== ENCOUNTER 2025-09-16 11:17 | Outpatient (CLI) | payer MEDICARE, SELFPAY ==
--- NOTE | ~2025-09-16 | MM_ITS ---
EXAMINATION: MM screening [facility] BI w nidia HISTORY: Screening TECHNIQUE: Craniocaudal and mediolateral oblique 3-D tomosynthesis images were obtained and synthetic 2-D images were generated. CAD analysis was submitted and interpreted. COMPARISON: Comparison to multiple prior studies sequentially, with oldest reviewed study dated 07/31/2018. BREAST PARENCHYMAL COMPOSITION: Not Dense. The breasts are almost entirely fatty. FINDINGS: There is no evidence of suspicious mass, calcification, or architectural distortion to suggest malignancy in either breast. There has been no suspicious interval change. IMPRESSION: 1. No mammographic evidence of malignancy. 2. Recommend routine screening mammography in one year. BI-RADS Category 1: Negative Reviewed, dictated and finalized at location O.
== END 2025-09-16 11:18 | disposition home or self-care (01) ==
LOC: MICIMG 11:17
PROVIDERS: PCP Family Medicine; Visit Provider Obstetrics & Gynecology Gynecology
DX: Z12.31 Encounter for screening mammogram for malignant neoplasm of breast (principal)
CPT/HCPCS: 77063; 77067